=== PATIENT | male | born 1960 | race Caucasian/White ===

== ENCOUNTER 2016-09-11 18:35 | Emergency (ER) | payer OTHER ==
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
--- NOTE | 2016-09-11 21:49 | ED ORDER SUMMARY ---
..... Patient: GLO PRIEST OrderSheet [facility] VisitID: [id number] [address] [place] [address] 56y, M Registration Date/Time: 09/11/2016 ORDER SHEET Weight: 77.1 kg (stated) Allergies: None GENERAL ORDERS: MEDICATION ORDERS: Hydrocodone-APAP PO 5/325 mg (NOW, HIGH ALERT MEDICATION) (21:25 09/11/2016 HBivens A.R.N.P.) (Ack 21:26 JWally R.N.) (21:35 ErynQuiveelias R.N.) IV FLUIDS: ORDER SHEET NOTES: [Electronically signed by Ari Lo R.N. (21:36 09/11/2016)] [Electronically signed by Jeannie WilsonR.N.PLeandro (21:49 09/11/2016)] [Electronically locked/signed by Ari Lo R.N. (21:36 09/11/2016)]
--- NOTE | 2016-09-11 21:49 | ED ORDER SUMMARY ---
..... Patient: GLO PRIEST OrderSheet [facility] VisitID: [id number] [address] [place] [address] 56y, M Registration Date/Time: 09/11/2016 ORDER SHEET Weight: 77.1 kg (stated) Allergies: None GENERAL ORDERS: MEDICATION ORDERS: Hydrocodone-APAP PO 5/325 mg (NOW, HIGH ALERT MEDICATION) (21:25 09/11/2016 HBivens A.R.N.P.) (Ack 21:26 JWally R.N.) (21:35 ErynQuiveelias R.N.) IV FLUIDS: ORDER SHEET NOTES: [Electronically signed by Ari Lo R.N. (21:36 09/11/2016)] [Electronically signed by Jeannie WilsonR.N.PLeandro (21:49 09/11/2016)] [Electronically locked/signed by Ari Lo R.N. (21:36 09/11/2016)]
--- NOTE | 2016-09-11 21:49 | ED MAR SUMMARY ---
..... Medication Administration Record [facility] [address] [place] [address] Patient: GLO PRIEST Visit ID: [id number] 56y, M Weight: 77.1 kg Height/Length: 68 in BMI: 25.9 ALLERGIES: None Given 21:29 09/11/2016 Ari Lo R.N. Medication Administered: HYDROCODONE-APAP [PO] (HYDROCODONE-ACETAMINOPHEN), Dose: 1 tab 5/325 mg Tablets PO. Medication Ordered: Hydrocodone-APAP PO 5/325 mg (NOW, HIGH ALERT MEDICATION).
--- NOTE | 2016-09-11 21:49 | ED MED RECONCILIATION SUMMARY ---
Patient: GLO PRIEST Medication Reconciliation Report [facility] VisitID: [id number] [address] [place] [address] 56y, M Registration Date/Time: 09/11/2016 Weight: 77.1 kg Height/Length: 68 in. BMI: 25.9 ALLERGIES: None The patient's Home Medications are listed below: THE FOLLOWING MEDICATIONS NEED TO BE RECONCILED: Motrin 600mg prn, last dose 0900 tylenol 975mg at 0900 vicodin 5/325 ran out yesterday The source(s) of the original Home Medication information: Not obtained. The following Medications were given to the patient in the Emergency Department: Hydrocodone-APAP [PO] PO 1 tab, administered: 09/11/2016 9:29:00 PM The following Medications were prescribed to the patient: Flexeril 10 mg: Take 1 orally every 8 hours as needed for muscle spasm. Dispense twenty (20). No refills. Substitution is permissible. -- Jeannie Wilson A.R.N.P. Ultram 50 mg tablets: take 1-2 orally every 6 hours as needed for pain. Dispense twenty (20). No refills. Substitution is permissible. -- Jeannie Wilson A.R.N.P.
--- NOTE | 2016-09-11 21:49 | ED MAR SUMMARY ---
..... Medication Administration Record [facility] [address] [place] [address] Patient: GLO PRIEST Visit ID: [id number] 56y, M Weight: 77.1 kg Height/Length: 68 in BMI: 25.9 ALLERGIES: None Given 21:29 09/11/2016 Ari Lo R.N. Medication Administered: HYDROCODONE-APAP [PO] (HYDROCODONE-ACETAMINOPHEN), Dose: 1 tab 5/325 mg Tablets PO. Medication Ordered: Hydrocodone-APAP PO 5/325 mg (NOW, HIGH ALERT MEDICATION).
--- NOTE | 2016-09-11 21:49 | ED MED RECONCILIATION SUMMARY ---
Patient: GLO PRIEST Medication Reconciliation Report [facility] VisitID: [id number] [address] [place] [address] 56y, M Registration Date/Time: 09/11/2016 Weight: 77.1 kg Height/Length: 68 in. BMI: 25.9 ALLERGIES: None The patient's Home Medications are listed below: THE FOLLOWING MEDICATIONS NEED TO BE RECONCILED: Motrin 600mg prn, last dose 0900 tylenol 975mg at 0900 vicodin 5/325 ran out yesterday The source(s) of the original Home Medication information: Not obtained. The following Medications were given to the patient in the Emergency Department: Hydrocodone-APAP [PO] PO 1 tab, administered: 09/11/2016 9:29:00 PM The following Medications were prescribed to the patient: Flexeril 10 mg: Take 1 orally every 8 hours as needed for muscle spasm. Dispense twenty (20). No refills. Substitution is permissible. -- Jeannie Wilson A.R.N.P. Ultram 50 mg tablets: take 1-2 orally every 6 hours as needed for pain. Dispense twenty (20). No refills. Substitution is permissible. -- Jeannie Wilson A.R.N.P.
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
== END 2016-09-11 21:34 | disposition home or self-care (01) ==
LOC: ED SRH 18:35
DX: S13.4XXA Sprain of ligaments of cervical spine, initial encounter (principal); S39.012A Strain of muscle, fascia and tendon of lower back, initial encounter; V43.52XA Car driver injured in collision with other type car in traffic accident, initial encounter; Y93.89 Activity, other specified; Y92.410 Unspecified street and highway as the place of occurrence of the external cause; F17.210 Nicotine dependence, cigarettes, uncomplicated